=== PATIENT | female | born 1975 | race Caucasian/White ===

== ENCOUNTER → 2016-12-22 | Outpatient (CLI) | payer OTHER ==
[~2016-12-22] MED LIST: ALPRAZOLAM PO; ANTIVERT PO; BENADRYL PO; BENTYL20 MG PO; CAL; CARAFATE PO; CELEXA PO; CIPRO PO; CLEOCIN PO; DARVOCET-N 1001 TAB PO; EFFEXOR XR PO; FAMOTIDINE PO; HCTZ PO; KEFLEX PO; NEXIUM PO; PREDNISONE PO; PROTONIX PO; SKELAXIN PO; VENLAFAXINE H37.5 M1 PO; VIIBRYD10 MG PO; VOLTAREN50 MG PO; VOLTAREN75 MG PO; XANAX0.5 M1 PO; XANAX0.5 MG PO
--- NOTE | ~2016-12-22 | CR71 ---
[facility] A Service of [facility] & [facility] RADIOLOGY TEXT RESULTS PATIENT: RIVER ABAD LOCATION: [facility] : 73 UNIT #: [id number] AGE: [address]: Felipe Rahman MD SEX: F ORDER DR: [id number] [facility] [address] [place], [place] [address] [id number] O MR#: [id number] Acc #: [id number] NAME: RIVER ABAD : 1975 SEX: F STUDY DATE/TIME: 12/22/2016 11:07 UNIT: [facility] ROOM: STUDY DESCRIPTION: CR Chest Single View Attending Physician: Felipe Rahman M.D. Referring Physician: Felipe Rahman M.D. Ordering Physician: Felipe Rahman M.D. Primary Care Physician: Abril De La Cruz M.D. MEDICAL IMAGING REPORT This report is preliminary unless electronic signature is present EXAM Chest portable 12/22/2016 1107 hours CLINICAL HISTORY 41-year-old with shortness of air today, history of COPD. COMPARISON 03/30/2013 FINDINGS Portable upright chest demonstrates low lung volumes. The cardiac, mediastinal, and hilar contours are normal. There is very mild perihilar vascular crowding. No acute pulmonary density or pleural effusion. IMPRESSION Low lung volumes. No acute cardiopulmonary findings. Dictated by... Connie Brady M.D. THIS IS AN ELECTRONICALLY VERIFIED REPORT Connie Brady M.D. at 12/23/2016 9:21 AM CHELY/colten TD: 12/22/2016 12:02 JOB #: [id number] MEDICAL IMAGING REPORT Page 1 of 1 COPY
== END | disposition home or self-care (01) ==
LOC: CRC 10:23
DX: J44.9 Chronic obstructive pulmonary disease, unspecified (principal)
CPT/HCPCS: 71010; 94060; 94726; 94729

== ENCOUNTER 2017-01-07 13:43 | Emergency (ER) | payer OTHER ==
--- NOTE | ~2017-01-07 | CT4 ---
[facility] A Service of [facility] & [facility] RADIOLOGY TEXT RESULTS PATIENT: RIVER ABAD LOCATION: [facility] : 73 UNIT #: [id number] AGE: [address]: Sj Funes MD SEX: F ORDER DR: [id number] [address] [address] [id number] E MR#: [id number] Acc #: [id number] NAME: RIVER ABAD : 1975 SEX: F STUDY DATE/TIME: 01/07/2017 14:53 UNIT: SED ROOM: STUDY DESCRIPTION: CT Abd and Pelv Wo Cont Attending Physician: Sj Funes M.D. Ordering Physician: Sj Funes M.D. Primary Care Physician: Abril De La Cruz M.D. MEDICAL IMAGING REPORT This report is preliminary unless electronic signature is present. EXAM CT abdomen and pelvis HISTORY Pain right lower abdomen pain for 2 days. Blood +3 in urine prior history of gallbladder surgery left tube ovary removed two wisdom teeth hysterectomy still has right ovary endoscope x2 colonoscopy x2 frequent UTI fibromyalgia. FINDINGS CT abdomen and pelvis performed without administration of oral or intravascular contrast. This CT exam was performed with one or more of the following radiation dose reduction techniques: automatic control, adjustment of mA and/or kV according to patient size, and iterative reconstruction. Comparison 09/14/2014. Linear atelectasis or scarring at the lung bases. Inferior heart and pericardium unremarkable. Liver normal in appearance. Status post cholecystectomy. Spleen, pancreas, adrenal glands unremarkable. No hydronephrosis. No nephrolithiasis. No perinephric acute appearing inflammatory change. CT PELVIS: No inguinal adenopathy. Urinary bladder normal. No free fluid. Status post hysterectomy. Patient retains right ovary. 2.3 cm cyst in right ovary likely dominant follicle for this menstrual cycle. No suspicious adnexal findings. No pelvic or retroperitoneal adenopathy. Distal esophagus, stomach, small bowel unremarkable. Appendix shows no acute-appearing abnormality. There is a hyperdense focus in the proximal appendix measuring about 2 mm which may represent small appendicolith. No appendiceal inflammatory change. Colon unremarkable. Unopacified vascular structures show atherosclerotic arterial calcifications. The bony structures. No acute-appearing bony abnormality. IMPRESSION 1. 2.3 cm right ovarian cyst likely the dominant follicle for this STS. [facility] A Service of [facility] & [facility] RADIOLOGY TEXT RESULTS PATIENT: RIVER ABAD LOCATION: [facility] [place] : 73 UNIT #: [id number] AGE: [address]: Sj Funes MD SEX: F ORDER DR: menstrual cycle. 2. The patient is status post cholecystectomy and hysterectomy. 3. No renal abnormalities are seen. No calculi or obstruction. No perinephric inflammatory change. 4. Appendix normal. 5. Remainder of alimentary canal unremarkable. 6. Atherosclerotic arterial calcifications. 7. No abnormal fluid collections. 8. Remainder of incidental findings in body report above. Dictated by... Salazar Cain M.D. THIS IS AN ELECTRONICALLY VERIFIED REPORT Salazar Cain M.D. at 01/09/2017 11:31 AM ANJU/nile TD: 01/07/2017 23:23 JOB #: [id number] MEDICAL IMAGING REPORT Page 1 of 1
[2017-01-07 14:32] LABS: URINE APPEARANCE CLEAR; URINE BILIRUBIN NEG (NEG); URINE BLOOD 3+ (NEG); URINE COLOR YELLOW; URINE GLUCOSE NEG (NORM); URINE KETONE NEG (NEG); URINE LEUKOCYTE ESTERASE NEG (NEG); URINE NITRATE NEG (NEG); URINE PROTEIN NEG (NEG); URINE SPECIFIC GRAVITY 1.025 (1.003-1.035); URINE UROBILINOGEN 0.2 MG/DL (NORM)
[2017-01-07 14:34] LABS: BASOPHIL# 0.1 X10e3 (0-0.3); BASOPHIL% 0.9 % (0-2.5); EOSINOPHIL# 0.2 X10e3 (0-0.7); EOSINOPHIL% 1.8 % (0.0-7.0); HEMATOCRIT 43.8 % (35.0-45.0); HEMOGLOBIN 14.7 gm/dL (12.0-16.0); LYMPHOCYTE# 2.9 X10e3 (1.0-3.5); LYMPHOCYTE% 25.7 % (17.0-45.0); MEAN CELL VOLUME 93.8 FL (83-96); MEAN CORPUSCULAR HEMOGLOBIN 31.5 PG (28-34); MEAN CORPUSCULAR HGB CONC 33.6 g/dL (30-36); MEAN PLATELET VOLUME 9.1 FL (6.5-11.5); MONOCYTE# 0.8 X10e3 (0-1.0); MONOCYTE% 7.6 % (3.0-12.0); NEUTROPHIL# 7.1 X10e3 (1.5-7.1); PLATELET COUNT 215 X10e3 (140-420); RED BLOOD COUNT 4.67 X10e (3.90-5.30); RED CELL DISTRIBUTION WIDTH 13.4 % (11.0-15.5); WHITE BLOOD COUNT 11.1 X10e3 (4.0-10.5)
[2017-01-07 14:35] LABS: DIFF IND NO
[2017-01-07 14:35] LABS: MICRO INDICATED? YES; URINE SOURCE CLEAN CATCH
[2017-01-07 14:50] LABS: BILIRUBIN, DIRECT 0.1 mg/dL (0.0-0.2); BILIRUBIN,INDIRECT 0.1 mg/dL (0.0-0.9); BILIRUBIN,TOTAL 0.2 mg/dL (0.2-2.0); BUN/CREATININE RATIO 17.14; CALCIUM SERUM 9.3 mg/dL (8.4-10.2); CREATININE SERUM 0.7 mg/dL (0.6-1.4); GLOM FILT RATE Estimated 106.9 mL/min (>60); POTASSIUM 3.8 mmol/L (3.5-5.1); PROTEIN TOTAL SERUM 7.6 g/dL (6.0-8.3)
[2017-01-07 15:01] LABS: CULTURE INDICATED? YES; URINE BACTERIA 1+ (NEG); URINE MUCUS PRESENT; URINE RBC 0-2 /[HPF] (0-2); URINE SQUAMOUS EPITHELIAL CELL OCCAS /[HPF]; URINE WBC 0-2 /[HPF] (0-5)
[2017-01-10 17:01] LABS: CHLAMYDIA TRACH Not Detected (Not Detected); N GONOR Not Detected (Not Detected)
== END 2017-01-07 16:36 | disposition home or self-care (01) ==
LOC: SED 13:43
PROVIDERS: Emergency Medicine
DX: N83.201 Unspecified ovarian cyst, right side (principal); Z90.710 Acquired absence of both cervix and uterus; Z90.49 Acquired absence of other specified parts of digestive tract; F17.200 Nicotine dependence, unspecified, uncomplicated; Z88.2 Allergy status to sulfonamides; Z88.8 Allergy status to other drugs, medicaments and biological substances
CPT/HCPCS: 36415; 74176; 80048; 80076; 81003; 83690; 84703; 85025; 87086; 87210; 87491; 87591; 87808; 87905; 99284